=== PATIENT | male | born 1965 | race Caucasian/White ===

== ENCOUNTER → 2024-07-13 15:46 | Outpatient (REF) | payer OTHER, SELFPAY | LOC: RAD 15:46 | PROVIDERS: ATTENDING PHYSICIAN Specialist; FAMILY PHYSICIAN Family Medicine | DX: R97.20 Elevated prostate specific antigen [PSA] (principal) | CPT/HCPCS: 70030 ==

== ENCOUNTER → 2024-07-13 18:40 | Outpatient (REF) | payer OTHER, SELFPAY | LOC: MRI 3T 18:40 | PROVIDERS: ATTENDING PHYSICIAN Specialist; FAMILY PHYSICIAN Family Medicine | DX: R97.20 Elevated prostate specific antigen [PSA] (principal); Z80.42 Family history of malignant neoplasm of prostate; Z12.5 Encounter for screening for malignant neoplasm of prostate | CPT/HCPCS: 72197; A9575 ==

== ENCOUNTER 2025-03-08 08:14 | Outpatient (RCR) | payer OTHER, SELFPAY | END 2025-03-08 23:59 | disposition home or self-care (01) | LOC: RPT 08:14 | PROVIDERS: ATTENDING PHYSICIAN Specialist; FAMILY PHYSICIAN Family Medicine | DX: C61 Malignant neoplasm of prostate (principal); M62.89 Other specified disorders of muscle; Z73.6 Limitation of activities due to disability | CPT/HCPCS: 97162; 97530 ==

== ENCOUNTER 2025-03-23 06:09 | Day surgery (SDC) | payer OTHER, SELFPAY ==
[2025-03-09 09:11] LABS: Hematocrit 41.1 % (39.0-52.0); Hemoglobin 13.8 g/dL (13.0-18.0); Mean Corp Hgb Conc. 33.6 g/dL (33.0-37.0); Mean Corpuscular Hgb 30.5 pg (27.0-31.0); Mean Corpuscular Volume 90.9 fL (80.0-94.0); Mean Platelet Volume 12.2 fL (7.4-10.4); Platelet Count 180 10^3/uL (130-400); Red Blood Cell Count 4.52 10^6/uL (4.70-6.10); Red Cell Dist. Width 12.6 % (11.5-14.5); White Blood Cell Count 5.6 10^3/uL (4.8-10.8)
[2025-03-09 09:42] LABS: Blood Urea Nitrogen 21 mg/dl (9-20); Calcium 9.7 mg/dl (8.4-10.2); Carbon Dioxide 27 mmol/L (22-30); Chloride 106 mmol/L (98-107); Glucose 91 mg/dl (70-99); Sodium 141 mmol/L (135-145); eGFR > 60.00
[2025-03-09 13:39] VITALS: BMI 26.3
[2025-03-23] VITALS (15 sets, daily range): BP systolic 119–155; BP diastolic 63–96; BMI 26.3
[2025-03-23] MEDS: NORMOSOL-R/PLASMALYTE-A 1000 IV ×2 (06:50→15:22)
[2025-03-23] MEDS: NEOMYCIN ENEMA 1 BOTTLE RECTAL (07:11)
[2025-03-23] MEDS: PROTONIX 40 MG PO (15:19)
[2025-03-23] MEDS: COZAAR 100 MG PO (15:19)
[2025-03-23] MEDS: POLYSPORIN OINTMENT 1 APPLIC TOPICAL ×2 (15:20→20:22)
[2025-03-23] MEDS: TORADOL 15 MG IV ×2 (15:24→22:57)
[2025-03-23] MEDS: COLACE PO ×3 (15:26)
[2025-03-23] MEDS: TYLENOL 650 MG PO (23:44)
[2025-03-24] MEDS: NORCO 5/325 1 TABLET PO (01:00)
[2025-03-24] MEDS: NORMOSOL-R/PLASMALYTE-A 1000 IV (02:50)
[2025-03-24 03:10] VITALS: BP 107/57
--- NOTE | 2025-03-24 03:30 | DOWNTIME ---
There was a [employer] Downtime on 03/24/2025 from 0200 to 03/24/2024 at 0318 . Downtime documentation of patient's care, including medication administrations, has been reconciled in the electronic record per guidelines. Refer to the
patient's paper chart under the miscellaneous tab to see printed paper medication records and downtime forms.
[2025-03-24] MEDS: TORADOL 15 MG IV ×2 (04:43→11:42)
[2025-03-24 07:25] VITALS: BP 107/70
[2025-03-24 08:20] LABS: Hemoglobin 8.8 g/dL (13.0-18.0); Mean Corp Hgb Conc. 33.8 g/dL (33.0-37.0); Mean Corpuscular Hgb 30.7 pg (27.0-31.0); Mean Corpuscular Volume 90.6 fL (80.0-94.0); Mean Platelet Volume 11.6 fL (7.4-10.4); Platelet Count 149 10^3/uL (130-400); Red Blood Cell Count 2.87 10^6/uL (4.70-6.10); Red Cell Dist. Width 12.7 % (11.5-14.5)
[2025-03-24 08:28] LABS: Blood Urea Nitrogen 28 mg/dl (9-20); Calcium 8.2 mg/dl (8.4-10.2); Carbon Dioxide 26 mmol/L (22-30); Chloride 100 mmol/L (98-107); Estimated Creatinine Clearance 59 ml/min; Glucose 106 mg/dl (70-99); Sodium 136 mmol/L (135-145); eGFR > 60.00
--- NOTE | 2025-03-24 08:53 | CM ---
Cm reviewed medical records. Patient lives with independently. Patient is denied history of VN , SNF or DME. Patient is active with his PCP. Patient uses [facility] for medication services.
Patient referred to [facility]. [facility] admission RN made aware.
PLAN: Home with [facility]
[2025-03-24] MEDS: COZAAR PO ×2 (09:18→11:41)
[2025-03-24] MEDS: PROTONIX 40 MG PO (09:18)
[2025-03-24] MEDS: COLACE 100 MG PO (09:19)
[2025-03-24] MEDS: POLYSPORIN OINTMENT 1 APPLIC TOPICAL (09:19)
--- NOTE | 2025-03-24 10:02 | VNURNOTE ---
Home Health Liaison met with patient at bedside to discuss [facility] nurse/therapy, visits, schedule and homebound status. Patient is agreeable and understands that visits at home will be 2-3 x per week to assess and teach medical and norris management.
Patient is aware that [facility] will contact them for start of care in 1-2 days after discharge from .
[facility] referral completed in [facility].
--- NOTE | 2025-03-24 10:16 | W.PN.URO.CBU ---
Today's Communication / Plan
-
discharge
Assessment / Plan
-
stable
Diagnosis
-
Date of Service: March 24, 2025
-
Patient Diagnosis: prostate cancer s/p robotic radical prostatectomy
Post Op Day: 1
Subjective
-
expected pelvic discomfort
Objective
-
Vital Signs
Temp Pulse Resp BP Pulse Ox
98.8 F 93 16 107/70 91
03/24/25 07:25 03/24/25 09:18 03/24/25 07:25 03/24/25 09:18 03/24/25 07:25
Intake and Output
03/23/25 03/24/25 03/25/25
06:59 06:59 06:59
Intake Total 1210 / 1210
Output Total 600 / 600
Balance 610 / 610
Intake:
Oral fluids 960 / 960
IV fluids (Total) 250 / 250
normosol 250 / 250
Output:
Urine, Weston 600 / 600
Laboratory Results
03/24/25 07:34
03/24/25 07:34
Physical Exam
-
General - well developed, well nourished, no acute distress
Abdomen - soft, non-tender, positive bowel sounds, no distention
Genitalia -Weston draining yellow urine
Skin - warm & dry with no rash
Neuro - AOx3, no motor deficits
Extremities - no clubbing, no cyanosis, no edema
Dressings - clean, dry, intact
[2025-03-24 11:24] VITALS: BP 99/44
[2025-03-24 13:15] VITALS: BP 100/55
== END 2025-03-24 13:35 | disposition home or self-care (01) ==
LOC: SDS 06:09
PROVIDERS: ATTENDING PHYSICIAN Specialist; FAMILY PHYSICIAN Family Medicine
DX: C61 Malignant neoplasm of prostate (principal)
CPT/HCPCS: 55866; 88307; 88309; 36415; 80048; 85027; 86850; 86900; 86901; 93005

== ENCOUNTER 2025-03-27 04:09 | Emergency (ER) | payer OTHER, SELFPAY ==
[2025-03-27 04:14] VITALS: BP 150/84
[2025-03-27 04:21] VITALS: BP 149/87
[2025-03-27 04:23] VITALS: BMI 27.6
[2025-03-27 05:00] VITALS: BP 137/74
--- NOTE | 2025-03-27 05:50 | ED.GENMED ---
History of Present Illness
<DO Wen Cote Last Filed: 03/27/25 06:35>
General
Chief Complaint: Blood Pressure Problem
Source: patient
Exam Limitations: none
Time Seen by Provider: 03/27/25 05:08
Nursing documentation reviewed up to this point in time: agreed with
History of Present Illness
History of Present Illness:
Pleasant 60-year-old male presents to the emergency department anxiety about his blood pressure. He had prostate surgery 2 days ago and he has been checking his blood pressure and noticed that it was elevated. At home this morning he states that
his 180/110. Patient does have a Weston catheter in place. Patient has no other complaints at this time.
Review of Systems
<Bob Rodriguez DO - Last Filed: 03/27/25 06:35>
Review of Systems
Allergies reviewed?: Yes
All Other Systems: ROS reviewed and negative except as documented in HPI and ROS
Constitutional: Reports no symptoms
EENT: Reports no symptoms
Respiratory: Reports no symptoms
Cardiac: Reports no symptoms
ABD/GI: Reports no symptoms
: Reports no symptoms
Musculoskeletal: Denies joint pain, joint swelling or neck pain
Skin: Reports no symptoms
Neurological: Denies dizzy, headache, weakness or numbness
Endocrine: Reports no symptoms
Hematologic/Lymphatic: Reports no symptoms
Psychiatric: Reports anxiety
Phy Exam
<DO Wen Cote Last Filed: 03/27/25 06:35>
General Physical Exam
General Presentation: well appearing and no apparent distress
General age: appears stated age
General Skin: warm and dry
General Habitus: normal
General Mental: alert
General Hydration: appears well hydrated
ENT Exam
ENT Exam: EOMI, pharynx normal, neck supple and normocephalic
Eye Exam
Eye Exam: PERRL, cornea clear and conjunctiva normal
Cardiovascular Exam
Cardiovascular Exam: regular rate/rhythm, no edema, no murmur and normal peripheral pulses
Pulmonary Exam
Pulmonary Exam: lungs clear, no respiratory distress, no rales, no crackles, no rhonchi, no stridor, no wheezing and no cough
Gastrointestinal Exam
Gastrointestinal Exam: normal bowel sounds, non tender, soft, no organomegaly, no pulsatile mass and non distended
Neurological Exam
Neurological Exam: alert, oriented x3, no motor deficits and speech normal
Musculoskeletal Exam
Musculoskeletal Exam: full ROM and no edema
Skin Exam
Skin Exam: normal color, warm/dry, no rash and no petechia
Psychiatric Exam
Psychiatric Exam: normal mood/affect
Course
<Bob Rodriguez DO - Last Filed: 03/27/25 06:35>
Orders/Labs/Results
Orders:
Orders
03/27/25 05:17
Chest [CR Chest - 2 Views ] Urgent
Comment:
Reason For Exam: post surgical pain
03/27/25 05:52
Electrocardiogram (*1) Urgent
Reason for Study: QTc Monitoring
EKG- Treatment ONCE
Vital Signs
Initial and Last Documented VS:
Initial Vital Signs
Temp Pulse Resp BP Pulse Ox
98.9 F 94 20 150/84 96
03/27/25 04:14 03/27/25 04:14 03/27/25 04:14 03/27/25 04:14 03/27/25 04:14
Last Documented Vital Signs
Temp Pulse Resp BP Pulse Ox
98.9 F 82 20 146/84 95
03/27/25 04:14 03/27/25 06:49 03/27/25 06:49 03/27/25 06:49 03/27/25 06:49
<Artur Granger PA-C - Last Filed: 03/27/25 13:11>
Orders/Labs/Results
Orders:
Orders
03/27/25 05:17
Chest [CR Chest - 2 Views ] Urgent
Comment:
Reason For Exam: post surgical pain
03/27/25 05:52
Electrocardiogram (*1) Urgent
Reason for Study: QTc Monitoring
EKG- Treatment ONCE
Vital Signs
Initial and Last Documented VS:
Initial Vital Signs
Temp Pulse Resp BP Pulse Ox
98.9 F 94 20 150/84 96
03/27/25 04:14 03/27/25 04:14 03/27/25 04:14 03/27/25 04:14 03/27/25 04:14
Last Documented Vital Signs
Temp Pulse Resp BP Pulse Ox
98.9 F 82 20 146/84 95
03/27/25 04:14 03/27/25 06:49 03/27/25 06:49 03/27/25 06:49 03/27/25 06:49
<Bob Rodriguez DO - Last Filed: 03/27/25 06:35>
*Pulse Oximetry
Patient hypoxic: no
*EKG
Interpreted by ED Provider?: Yes
Interpretation: normal
Heart Rate: 79
Rate: normal
Rhythm: sinus
[place]: normal axis
Interval: normal interval
QRS Pattern: normal QRS
Ischemia: no ischemia
*Critical Care Note
Total Time (30-74mins, 75-104mins- exclusive of procedures): Not Applicable
<Artur Granger PA-C - Last Filed: 03/27/25 13:11>
Update Note
Update Note:
1:10 PM 03/27/2025: Received a call from radiology regarding patient's x-ray concerning for significant subcutaneous emphysema and free air in the abdomen underneath the diaphragm on the x-ray. I spoke with the patient. He denies any abdominal
pain. He is not short of breath. These findings on x-ray are likely related to his recent operative procedure.
ED Attending Note
<Bob Rodriguez DO - Last Filed: 03/27/25 06:35>
-
Portions of this chart may have been created with voice recognition software.� Occasional wrong word or��sound alike� substitutions may have occurred due to the inherent limitations of voice recognition software.
Discharge Plan
Departure
Patient Disposition: Home (Routine Discharge)
Date of Disposition: 03/27/25
Time of Disposition: 06:47
Patient with high blood pressure during this ER visit?: Yes
Discharge Problem:
Hypertension, Subcutaneous emphysema, postoperative
Instructions: High Blood Pressure (DC), BLOOD PRESSURE
Prescriptions:
No Action
multivitamin Tablet
1 tab PO DAILY
pantoprazole 40 mg Tablet,Delayed Release (Dr/Ec)
40 mg PO DAILY
losartan 100 mg Tablet
100 mg PO DAILY
naproxen sodium [Aleve] 220 mg capsule
440 mg PO BID PRN (Reason: Pain) Qty: 1 0RF
tramadol 50 mg tablet
50 mg PO TID PRN (Reason: severe pain) Qty: 10 0RF
Referrals:
Kellen Vazquez MD [Family Provider] -
Activity Restrictions/Additional Instructions:
Thank You for choosing [facility].
It was a pleasure meeting you and taking part in your care. We hope for your continued healing and wellness.
Please read discharge instructions in their entirety. However, they are for general education and may not describe your exact diagnosis at discharge. Information on your ER visit and medical conditions were discussed with you along with appropriate
follow up information...
If indicated, please take your medications as instructed and indicated on discharge paperwork.
Please schedule a follow up appointment as directed. Call to schedule an appointment
Please return to the emergency department with ANY change in, persisting, or worsening of symptoms. If any of your symptoms do not improve, or persist, or become more severe within 6-12 hours, please return to the emergency department for further
care.
Please return to the emergency department if you develop a headache, neck pain/stiffness, fever greater than 100.4F, chest pain, shortness of breath, persistent nausea, vomiting, slurred speech, difficulty walking, numbness/tingling, weakness, signs
of infection or any other symptoms that are worrisome to you.
If you have any questions or concerns please do not hesitate to call the Hospital at or E-mail me directly at [email or web address]
Interventions
Interventions:
*Risk Screen - Suicide Last Done: 03/27/25 04:23
*General Assessment Last Done: 03/27/25 04:23
*Neglect/Abuse Screening Last Done: 03/27/25 04:23
*ED- Fall Risk Assessment Last Done: 03/27/25 04:23
*ED COVID-19 Vaccine History Last Done: 03/27/25 04:23
*Nursing Disposition Last Done: 03/27/25 06:52
ED- Cardiac Assessment Last Done: 03/27/25 04:23
ED- Neurological Assessment Last Done: 03/27/25 04:23
ED- Pulmonary Assessment Last Done: 03/27/25 04:23
Discharge Date and Time
Discharge Date/Time: 03/27/25 07:30
Print Language: [id number]
[2025-03-27 06:00] VITALS: BP 142/82
[2025-03-27 06:47] VITALS: BP 146/84
[2025-03-27 06:49] VITALS: BP 146/84
== END 2025-03-27 07:30 | disposition home or self-care (01) ==
LOC: EMR 04:09
PROVIDERS: EMERGENCY PHYSICIAN Student in an Organized Health Care Education/Training Program; FAMILY PHYSICIAN Family Medicine
DX: T81.82XA Emphysema (subcutaneous) resulting from a procedure, initial encounter (principal); Y83.8 Other surgical procedures as the cause of abnormal reaction of the patient, or of later complication, without mention of misadventure at the time of the procedure; I10 Essential (primary) hypertension; Z90.79 Acquired absence of other genital organ(s)
CPT/HCPCS: 99284; 71046; 93005

== ENCOUNTER 2025-04-19 13:42 | Outpatient (RCR) | payer OTHER, SELFPAY | END 2025-04-19 23:59 | disposition home or self-care (01) | LOC: RPT 13:42 | PROVIDERS: ATTENDING PHYSICIAN Specialist; FAMILY PHYSICIAN Family Medicine | DX: C61 Malignant neoplasm of prostate (principal); M62.89 Other specified disorders of muscle; N39.3 Stress incontinence (female) (male); Z73.6 Limitation of activities due to disability; Z98.890 Other specified postprocedural states; Z90.79 Acquired absence of other genital organ(s) | CPT/HCPCS: 97112; 97164; 97530 ==

== ENCOUNTER 2025-05-18 16:04 | Outpatient (RCR) | payer OTHER, SELFPAY | END 2025-05-18 23:59 | disposition home or self-care (01) | LOC: RPT 16:04 | PROVIDERS: ATTENDING PHYSICIAN Specialist; FAMILY PHYSICIAN Family Medicine | DX: C61 Malignant neoplasm of prostate (principal); M62.89 Other specified disorders of muscle; N39.3 Stress incontinence (female) (male); Z73.6 Limitation of activities due to disability; Z98.890 Other specified postprocedural states; Z90.79 Acquired absence of other genital organ(s) | CPT/HCPCS: 97112; 97140; 97530 ==

== ENCOUNTER 2025-07-14 06:15 | Day surgery (SDC) | payer OTHER, SELFPAY | END 2025-07-14 09:40 | disposition home or self-care (01) | LOC: GI 06:15 | PROVIDERS: ATTENDING PHYSICIAN Internal Medicine Gastroenterology | DX: Z12.11 Encounter for screening for malignant neoplasm of colon (principal); K64.8 Other hemorrhoids; K57.30 Diverticulosis of large intestine without perforation or abscess without bleeding; R12 Heartburn; K22.89 Other specified disease of esophagus; K31.7 Polyp of stomach and duodenum; K22.70 Barrett's esophagus without dysplasia; K31.89 Other diseases of stomach and duodenum; Z86.0100 Personal history of colon polyps, unspecified | CPT/HCPCS: 43239; G0105; 88305; 88342 ==